=== PATIENT | female | born 1995 | race Two or more races ===

== ENCOUNTER 2024-04-23 08:13 | Outpatient (CLI) | payer OTHER | END 2024-04-23 08:15 | disposition home or self-care (01) | LOC: PRENATAL 08:13 | PROVIDERS: ATTEND Obstetrics & Gynecology Maternal & Fetal Medicine | DX: O44.00 Complete placenta previa NOS or without hemorrhage, unspecified trimester (principal); O34.219 Maternal care for unspecified type scar from previous cesarean delivery; Z3A.27 27 weeks gestation of pregnancy ==